=== PATIENT | female | born 1950 | race Caucasian/White ===

== ENCOUNTER 2017-11-30 04:17 | Inpatient (IN) | payer MEDICARE ==
[~2017-11-30] VITALS: Ht 162.6 cm; Wt 115.2 kg
[~2017-11-30 04:17] MED LIST: BUDE10.22 INH; CITA10TA4 PO; CYCL5TAB PO; GABA600T2 PO; HYDR-3241 PO; TIOT18CA INH
[2017-11-30] MEDS ORDERED: methylPREDNISolone SOD SUCC 125 MG/2 ML IVP ONE (04:30)
[2017-11-30] MEDS ORDERED: ALBUTEROL/IPRATROPIUM 2.5MG/0.5MG, 3 ML NPPB PRN (04:30)
[2017-11-30] MEDS ORDERED: CEFTRIAXONE PMX 1GM/50ML 50 ML IVPB ONE (04:30)
[2017-11-30] MEDS ORDERED: SODIUM CHLORIDE 0.9% 1,000ML IVBOLUS ONE ×2 (04:30→06:00)
[2017-11-30] MEDS ORDERED: AZITHROMYCIN 500 MG in SODIUM CHLORIDE 0.9% 250 ML IVPB ONE (04:30)
[2017-11-30] MEDS ORDERED: SODIUM CHLORIDE FLUSH 10ML SYR IVF ONE (04:30)
[2017-11-30] MEDS ORDERED: ONDANSETRON 2MG/ML, 2ML IVP ONE (04:30)
[2017-11-30] MEDS ORDERED: ONDANSETRON 2MG/ML, 2ML ONE (04:33)
[2017-11-30] MEDS ORDERED: CEFTRIAXONE PMX 1GM/50ML 50 ML ONE (04:33)
[2017-11-30] MEDS ORDERED: methylPREDNISolone SOD SUCC 125 MG/2 ML ONE ×2 (04:33→08:18)
[2017-11-30] MEDS: ALBUTEROL/IPRATROPIUM 2.5MG/0.5MG, 3 ML NPPB SCH ×4 (04:45→22:00)
[2017-11-30 05:14] LABS: MEAN CORPUSCULAR HGB CONC 32.2 g/dL (32.4-35.8); MEAN CORPUSCULAR VOLUME 80.7 fL (80-100); PLATELET COUNT 269 x10^3/uL (130-400); RED BLOOD COUNT 5.05 x10^6/uL (3.82-5.3); RED CELL DISTRIBUTION WIDTH 16.9 % (9.6-15.2)
[2017-11-30 05:26] LABS: ALANINE AMINOTRANSFERASE 28 U/L (12-78); ALBUMIN 2.9 g/dL (3.4-5.0); ANION GAP 9 mmol/L (5-15); CALCIUM 7.6 mg/dL (8.5-10.1); CHLORIDE 104 mmol/L (98-107); CREATININE 1.11 mg/dL (0.55-1.02)
[2017-11-30 05:30] LABS: ALKALINE PHOSPHATASE 117 U/L (45-117); BILIRUBIN,TOTAL 0.5 mg/dL (0.2-1.0); INTERNATIONAL NORMALIZED RATIO 0.97 (0.93-1.1); TOTAL PROTEIN 6.7 g/dL (6.4-8.2); TROPONIN I < 0.015 ng/mL (0.000-0.045)
[2017-11-30 05:37] LABS: BASOPHILS # (AUTO) 0.04 x10^3/uL (0-0.1); BASOPHILS % (AUTO) 0 % (0-1); EOSINOPHILS % (AUTO) 1 % (1-7); LYMPHOCYTES # (AUTO) 1.71 x10^3/uL (1-3.4); LYMPHOCYTES % (AUTO) 9 % (22-44); MD SCAN; MONOCYTES # (AUTO) 0.84 x10^3/uL (0.2-0.8); MONOCYTES % (AUTO) 4 % (2-9); NEUTROPHILS # (AUTO) 17.02 x10^3/uL (1.8-6.8); NEUTROPHILS % (AUTO) 86 % (42-75)
[2017-11-30] MEDS ORDERED: OMNIPAQUE 350 MG/ML, 100ML BOTTLE ONE (06:04)
[2017-11-30] MEDS ORDERED: ALBUTEROL/IPRATROPIUM 2.5MG/0.5MG, 3 ML ONE ×2 (06:19→13:46)
[2017-11-30] MEDS ORDERED: morphine SULFATE 10 MG/ML, 1ML IVPush ONE (08:00)
[2017-11-30] MEDS ORDERED: MORPHINE SULFATE 4 MG/ML, 1ML ONE (08:13)
[2017-11-30] MEDS: methylPREDNISolone SOD SUCC 125 MG/2 ML IVPush SCH ×2 (08:21→16:31)
[2017-11-30] MEDS ORDERED: BISACODYL 10 MG SUPP PR PRN (08:30)
[2017-11-30] MEDS ORDERED: NICOTINE 14MG/24 HR PATCH.TD24 ONE (09:38)
[2017-11-30] MEDS: NICOTINE 14MG/24 HR PATCH.TD24 TD SCH (09:45)
[2017-11-30] MEDS: FAMOTIDINE 20 MG/2 ML IVPush SCH ×2 (09:45→22:10)
[2017-11-30] MEDS ORDERED: ENOXAPARIN 40 MG/0.4 ML ONE (11:40)
[2017-11-30] MEDS: ENOXAPARIN 40 MG/0.4 ML SQ SCH (11:43)
[2017-11-30 14:50] LABS: RAPID INFLUENZA A Negative (Negative); RAPID INFLUENZA B Negative (Negative)
[2017-11-30 17:30] VITALS: BP 123/43
[2017-11-30 19:20] VITALS: BP 141/65
[2017-11-30] MEDS: BENZONATATE 100 MG CAPSULE PO SCH (23:52)
[2017-12-01] MEDS: methylPREDNISolone SOD SUCC 125 MG/2 ML IVPush SCH ×4 (00:08→19:24)
[2017-12-01 01:45] VITALS: BP 156/85
[2017-12-01] MEDS: CEFTRIAXONE PMX 1GM/50ML 50 ML IV SCH (04:57)
[2017-12-01] MEDS: AZITHROMYCIN 500 MG in SODIUM CHLORIDE 0.9% 250 ML IV SCH (04:57)
[2017-12-01 05:58] LABS: CHLORIDE 111 mmol/L (98-107)
[2017-12-01] MEDS: ALBUTEROL/IPRATROPIUM 2.5MG/0.5MG, 3 ML NPPB SCH ×5 (06:00→22:00)
[2017-12-01 06:03] LABS: MEAN CORPUSCULAR HEMOGLOBIN 26.1 pg (27.0-34.8); MEAN CORPUSCULAR HGB CONC 31.9 g/dL (32.4-35.8); MEAN CORPUSCULAR VOLUME 81.8 fL (80-100); MEAN PLATELET VOLUME 8.3 fL (7.4-10.4); PLATELET COUNT 263 x10^3/uL (130-400); RED BLOOD COUNT 4.92 x10^6/uL (3.82-5.3); RED CELL DISTRIBUTION WIDTH 17.7 % (9.6-15.2)
[2017-12-01 06:26] LABS: ALANINE AMINOTRANSFERASE 28 U/L (12-78); ALBUMIN 2.8 g/dL (3.4-5.0); ALKALINE PHOSPHATASE 103 U/L (45-117); ANION GAP 12 mmol/L (5-15); BILIRUBIN,TOTAL 0.3 mg/dL (0.2-1.0); CALCIUM 8.1 mg/dL (8.5-10.1); CREATININE 0.89 mg/dL (0.55-1.02)
[2017-12-01 07:03] LABS: BASOPHILS # (AUTO) 0.01 x10^3/uL (0-0.1); BASOPHILS % (AUTO) 0 % (0-1); EOSINOPHILS % (AUTO) 0 % (1-7); LYMPHOCYTES # (AUTO) 0.64 x10^3/uL (1-3.4); LYMPHOCYTES % (AUTO) 3 % (22-44); MD SCAN; MONOCYTES # (AUTO) 0.52 x10^3/uL (0.2-0.8); MONOCYTES % (AUTO) 3 % (2-9); NEUTROPHILS # (AUTO) 18.92 x10^3/uL (1.8-6.8); NEUTROPHILS % (AUTO) 94 % (42-75)
[2017-12-01 07:15] VITALS: BP 182/109
[2017-12-01] MEDS ORDERED: ALBU18HF INH (07:54)
[2017-12-01] MEDS: NICOTINE 14MG/24 HR PATCH.TD24 TD SCH (08:12)
[2017-12-01] MEDS: GUAIFENESIN ER 600 MG TABLET PO SCH ×2 (08:12→20:17)
[2017-12-01] MEDS: BENZONATATE 100 MG CAPSULE PO SCH ×3 (08:12→20:16)
[2017-12-01 09:31] VITALS: BP 152/83
[2017-12-01] MEDS: FAMOTIDINE 20 MG/2 ML IVPush SCH ×2 (13:14→20:16)
[2017-12-01] MEDS: ENOXAPARIN 40 MG/0.4 ML SQ SCH (13:53)
[2017-12-01] MEDS ORDERED: FUROSEMIDE 40 MG/4 ML IV ONE (15:00)
[2017-12-01 16:00] VITALS: BP 176/91
[2017-12-01 18:54] VITALS: BP 184/74
[2017-12-01 20:15] VITALS: BP 177/86
[2017-12-01] MEDS: hydrALAzine 20 MG/ML, 1ML IV PRN (20:16)
[2017-12-01] MEDS: TEMAZEPAM 15 MG CAPSULE PO PRN (20:17)
[2017-12-02 01:00] VITALS: BP 147/81
[2017-12-02] MEDS: methylPREDNISolone SOD SUCC 125 MG/2 ML IVPush SCH ×3 (01:09→22:03)
[2017-12-02 05:44] LABS: ANION GAP 7 mmol/L (5-15); CALCIUM 8.5 mg/dL (8.5-10.1); CHLORIDE 103 mmol/L (98-107); CREATININE 0.84 mg/dL (0.55-1.02)
[2017-12-02 05:45] LABS: MEAN CORPUSCULAR HEMOGLOBIN 26.2 pg (27.0-34.8); MEAN CORPUSCULAR HGB CONC 32.3 g/dL (32.4-35.8); MEAN CORPUSCULAR VOLUME 81.2 fL (80-100); MEAN PLATELET VOLUME 8.2 fL (7.4-10.4); PLATELET COUNT 324 x10^3/uL (130-400); RED BLOOD COUNT 5.08 x10^6/uL (3.82-5.3); RED CELL DISTRIBUTION WIDTH 17.7 % (9.6-15.2)
[2017-12-02 06:16] LABS: BASOPHILS # (AUTO) 0.02 x10^3/uL (0-0.1); BASOPHILS % (AUTO) 0 % (0-1); EOSINOPHILS % (AUTO) 0 % (1-7); LYMPHOCYTES # (AUTO) 0.46 x10^3/uL (1-3.4); LYMPHOCYTES % (AUTO) 3 % (22-44); MD SCAN; MONOCYTES # (AUTO) 0.37 x10^3/uL (0.2-0.8); MONOCYTES % (AUTO) 2 % (2-9); NEUTROPHILS # (AUTO) 17.85 x10^3/uL (1.8-6.8); NEUTROPHILS % (AUTO) 96 % (42-75)
[2017-12-02] MEDS: ALBUTEROL/IPRATROPIUM 2.5MG/0.5MG, 3 ML NPPB SCH ×4 (08:05→20:00)
[2017-12-02 08:30] VITALS: BP 171/97
[2017-12-02] MEDS: FLUTICASONE/VILANTEROL 200-25MCG/INH INH SCH (09:00)
[2017-12-02] MEDS: FAMOTIDINE 20 MG/2 ML IVPush SCH ×2 (09:00→20:57)
[2017-12-02] MEDS: BENZONATATE 100 MG CAPSULE PO SCH ×3 (12:57→20:57)
[2017-12-02] MEDS: CYCLOBENZAPRINE 10 MG TABLET PO PRN (12:57)
[2017-12-02] MEDS: NICOTINE 14MG/24 HR PATCH.TD24 TD SCH (12:57)
[2017-12-02] MEDS: GUAIFENESIN ER 600 MG TABLET PO SCH ×2 (12:57→20:58)
[2017-12-02] MEDS: ENOXAPARIN 40 MG/0.4 ML SQ SCH (12:58)
[2017-12-02 13:52] VITALS: BP 192/97
[2017-12-02] MEDS: GABAPENTIN 300 MG CAPSULE PO SCH ×2 (15:51→20:57)
[2017-12-02] MEDS: AZITHROMYCIN 500 MG in SODIUM CHLORIDE 0.9% 250 ML IV SCH (15:51)
[2017-12-02] MEDS ORDERED: FUROSEMIDE 40 MG/4 ML IV ONE (17:00)
[2017-12-02] MEDS ORDERED: DIPHENHYDRAMINE 50 MG/ML, 1ML ONE (17:49)
[2017-12-02] MEDS ORDERED: DIPHENHYDRAMINE 50 MG/ML, 1ML IVPush ONE (18:00)
[2017-12-02] MEDS: CEFTRIAXONE PMX 1GM/50ML 50 ML IV SCH (18:21)
[2017-12-02 19:51] VITALS: BP 179/90
[2017-12-02] MEDS: hydrALAzine 20 MG/ML, 1ML IV PRN (21:08)
[2017-12-02 22:38] VITALS: BP 153/75
[2017-12-03] MEDS: ALBUTEROL/IPRATROPIUM 2.5MG/0.5MG, 3 ML NPPB SCH ×6 (00:05→22:00)
[2017-12-03 01:00] VITALS: BP 203/102
[2017-12-03] MEDS: hydrALAzine 20 MG/ML, 1ML IV PRN (01:11)
[2017-12-03 01:43] VITALS: BP 136/70
[2017-12-03] MEDS: methylPREDNISolone SOD SUCC 125 MG/2 ML IVPush SCH ×3 (04:06→17:08)
[2017-12-03 05:36] LABS: BASOPHILS # (AUTO) 0.01 x10^3/uL (0-0.1); BASOPHILS % (AUTO) 0 % (0-1); EOSINOPHILS % (AUTO) 0 % (1-7); LYMPHOCYTES # (AUTO) 0.83 x10^3/uL (1-3.4); LYMPHOCYTES % (AUTO) 6 % (22-44); MD NO; MEAN CORPUSCULAR HEMOGLOBIN 26.1 pg (27.0-34.8); MEAN CORPUSCULAR HGB CONC 32.5 g/dL (32.4-35.8); MEAN CORPUSCULAR VOLUME 80.4 fL (80-100); MEAN PLATELET VOLUME 8.4 fL (7.4-10.4); MONOCYTES # (AUTO) 0.22 x10^3/uL (0.2-0.8); MONOCYTES % (AUTO) 2 % (2-9); NEUTROPHILS # (AUTO) 12.83 x10^3/uL (1.8-6.8); NEUTROPHILS % (AUTO) 92 % (42-75); PLATELET COUNT 290 x10^3/uL (130-400); RED BLOOD COUNT 5.11 x10^6/uL (3.82-5.3); RED CELL DISTRIBUTION WIDTH 17.9 % (9.6-15.2)
[2017-12-03 05:38] LABS: ANION GAP 7 mmol/L (5-15); CALCIUM 8.4 mg/dL (8.5-10.1); CHLORIDE 100 mmol/L (98-107)
[2017-12-03 05:39] LABS: CREATININE 0.79 mg/dL (0.55-1.02)
[2017-12-03 08:12] VITALS: BP 145/74
[2017-12-03] MEDS: FLUTICASONE/VILANTEROL 200-25MCG/INH INH SCH (09:45)
[2017-12-03] MEDS: FAMOTIDINE 20 MG/2 ML IVPush SCH ×2 (09:46→21:15)
[2017-12-03] MEDS: FUROSEMIDE 40 MG/4 ML IV SCH (09:46)
[2017-12-03] MEDS: CYCLOBENZAPRINE 10 MG TABLET PO PRN (09:46)
[2017-12-03] MEDS: GUAIFENESIN ER 600 MG TABLET PO SCH ×2 (09:46→21:14)
[2017-12-03] MEDS: BENZONATATE 100 MG CAPSULE PO SCH ×3 (09:46→21:14)
[2017-12-03] MEDS: GABAPENTIN 300 MG CAPSULE PO SCH ×3 (09:46→21:14)
[2017-12-03] MEDS: NICOTINE 14MG/24 HR PATCH.TD24 TD SCH (12:58)
[2017-12-03] MEDS: ENOXAPARIN 40 MG/0.4 ML SQ SCH (12:58)
[2017-12-03] MEDS: POLYETHYLENE GLYCOL 17 GM PACKET PO PRN (12:58)
[2017-12-03] MEDS: CEFTRIAXONE PMX 1GM/50ML 50 ML IV SCH (17:08)
[2017-12-03] MEDS: AZITHROMYCIN 500 MG in SODIUM CHLORIDE 0.9% 250 ML IV SCH (18:39)
[2017-12-03 19:27] VITALS: BP 141/74
[2017-12-04 01:16] VITALS: BP 140/68
[2017-12-04 06:04] LABS: ANION GAP 8 mmol/L (5-15); CHLORIDE 101 mmol/L (98-107); CREATININE 0.83 mg/dL (0.55-1.02)
[2017-12-04 06:20] LABS: BASOPHILS # (AUTO) 0.01 x10^3/uL (0-0.1); BASOPHILS % (AUTO) 0 % (0-1); EOSINOPHILS % (AUTO) 0 % (1-7); LYMPHOCYTES # (AUTO) 0.89 x10^3/uL (1-3.4); LYMPHOCYTES % (AUTO) 10 % (22-44); MD NO; MEAN CORPUSCULAR HGB CONC 32.5 g/dL (32.4-35.8); MEAN CORPUSCULAR VOLUME 79.9 fL (80-100); MEAN PLATELET VOLUME 8.3 fL (7.4-10.4); MONOCYTES # (AUTO) 0.41 x10^3/uL (0.2-0.8); MONOCYTES % (AUTO) 5 % (2-9); NEUTROPHILS # (AUTO) 7.61 x10^3/uL (1.8-6.8); NEUTROPHILS % (AUTO) 85 % (42-75); PLATELET COUNT 297 x10^3/uL (130-400); RED CELL DISTRIBUTION WIDTH 17.4 % (9.6-15.2)
[2017-12-04 06:50] VITALS: BP 115/62
[2017-12-04] MEDS ORDERED: POTASSIUM CHLORIDE 20 MEQ TAB.ER.PRT PO ONE (07:30)
[2017-12-04] MEDS: ALBUTEROL/IPRATROPIUM 2.5MG/0.5MG, 3 ML NPPB SCH ×5 (08:20→22:00)
[2017-12-04] MEDS: GABAPENTIN 300 MG CAPSULE PO SCH ×3 (08:54→20:29)
[2017-12-04] MEDS: BENZONATATE 100 MG CAPSULE PO SCH ×3 (08:54→20:30)
[2017-12-04] MEDS: FUROSEMIDE 40 MG/4 ML IV SCH (08:54)
[2017-12-04] MEDS: methylPREDNISolone SOD SUCC 125 MG/2 ML IVPush SCH (08:54)
[2017-12-04] MEDS: GUAIFENESIN ER 600 MG TABLET PO SCH ×2 (08:54→20:30)
[2017-12-04] MEDS: FLUTICASONE/VILANTEROL 200-25MCG/INH INH SCH (08:55)
[2017-12-04] MEDS: FAMOTIDINE 20 MG/2 ML IVPush SCH (08:55)
[2017-12-04] MEDS: NICOTINE 14MG/24 HR PATCH.TD24 TD SCH (12:40)
[2017-12-04] MEDS: ENOXAPARIN 40 MG/0.4 ML SQ SCH (12:40)
[2017-12-04 13:08] VITALS: BP 108/70
[2017-12-04] MEDS: CEFTRIAXONE PMX 1GM/50ML 50 ML IV SCH (16:37)
[2017-12-04] MEDS: AZITHROMYCIN 500 MG in SODIUM CHLORIDE 0.9% 250 ML IV SCH (18:18)
[2017-12-04] MEDS: POLYETHYLENE GLYCOL 17 GM PACKET PO PRN (18:18)
[2017-12-04 19:12] VITALS: BP 158/80
[2017-12-04] MEDS: FAMOTIDINE 20 MG TABLET PO SCH (20:30)
[2017-12-04] MEDS: TEMAZEPAM 15 MG CAPSULE PO PRN (20:30)
[2017-12-05 00:29] VITALS: BP 135/69
[2017-12-05 05:45] LABS: ANION GAP 5 mmol/L (5-15); CALCIUM 7.9 mg/dL (8.5-10.1); CHLORIDE 103 mmol/L (98-107)
[2017-12-05] MEDS: ALBUTEROL/IPRATROPIUM 2.5MG/0.5MG, 3 ML NPPB SCH ×3 (06:40→10:55)
[2017-12-05 07:24] VITALS: BP 155/77
[2017-12-05] MEDS ORDERED: AZIT250T PO (08:25)
[2017-12-05] MEDS ORDERED: CEFD300C37 PO (08:25)
[2017-12-05] MEDS ORDERED: PRED20TA PO (08:25)
[2017-12-05] MEDS ORDERED: IPRA3AMP NPPB (08:25)
[2017-12-05] MEDS: GABAPENTIN 300 MG CAPSULE PO SCH ×2 (08:53→16:05)
[2017-12-05] MEDS: FUROSEMIDE 40 MG/4 ML IV SCH (08:53)
[2017-12-05] MEDS: BENZONATATE 100 MG CAPSULE PO SCH ×2 (08:53→16:05)
[2017-12-05] MEDS: FAMOTIDINE 20 MG TABLET PO SCH (08:53)
[2017-12-05] MEDS: GUAIFENESIN ER 600 MG TABLET PO SCH (08:53)
[2017-12-05] MEDS: FLUTICASONE/VILANTEROL 200-25MCG/INH INH SCH (08:54)
[2017-12-05] MEDS: ENOXAPARIN 40 MG/0.4 ML SQ SCH (13:43)
[2017-12-05] MEDS: NICOTINE 14MG/24 HR PATCH.TD24 TD SCH (13:43)
[2017-12-05 14:24] VITALS: BP 141/82
[2017-12-05] MEDS: CEFTRIAXONE PMX 1GM/50ML 50 ML IV SCH (15:24)
[2017-12-05] MEDS: AZITHROMYCIN 500 MG in SODIUM CHLORIDE 0.9% 250 ML IV SCH (16:06)
== END 2017-12-05 19:40 | disposition home or self-care (01) | DRG 871 ==
LOC: ED 04:58 → EDIP 06:47 → 3NE 14:02
PROVIDERS: ADMIT Hospitalist; ATTEND Hospitalist
DX: A41.9 Sepsis, unspecified organism (principal); J18.9 Pneumonia, unspecified organism; J96.21 Acute and chronic respiratory failure with hypoxia; E43 Unspecified severe protein-calorie malnutrition; Z99.11 Dependence on respirator [ventilator] status; Z68.41 Body mass index [BMI] 40.0-44.9, adult; J44.0 Chronic obstructive pulmonary disease with (acute) lower respiratory infection; J44.1 Chronic obstructive pulmonary disease with (acute) exacerbation; E86.0 Dehydration; E66.9 Obesity, unspecified; F17.200 Nicotine dependence, unspecified, uncomplicated
CPT/HCPCS: 36415; 36600; 71045; 71275; 80048; 80053; 82803; 83605; 83735; 83880; 84484; 85025; 85610; 85730; 87040; 87070; 87205; 87400; 93005; 94640; 96365; 96366; 96375; J0456; J0696; J1650; J1940; J2405; J7620; Q9967; J0360; J1200; J2270; J2930; J7030; J7050; J7512; S0028